=== PATIENT | female | born 1930 | race Caucasian/White ===

== ENCOUNTER 2018-06-22 09:13 | Emergency (ER) | payer MEDICARE ==
[~2018-06-22] VITALS: Ht 160 cm; Wt 90.7 kg
[~2018-06-22 09:13] MED LIST: ACET325 PO; ALEN70 PO; CODACE30 PO; Combigan Eye Dro5 ML; ESOM20 PO; GLAUCOMA DROPS OP; IBUPROFEN PO; LATA.005SO; LISI5 PO; Omeprazole20 M1; PROC5 PO; Simvastatin20 MG PO; [UNRECOGNIZED DRUG - REMARK] PO; [UNRECOGNIZED DRUG - REMARK] PO
[2018-06-22] MEDS ORDERED: ACET325 PO (09:49)
[2018-06-22] MEDS ORDERED: TYLECOD3 PO (09:49)
[2018-06-22] MEDS ORDERED: IBUP600 PO (09:49)
[2018-06-22] MEDS ORDERED: METR250 (09:50)
[2018-06-22] MEDS ORDERED: Flovent Diskus50 MCG (09:51)
[2018-06-22] MEDS ORDERED: Combigan Eye Dro5 ML (09:51)
[2018-06-22] MEDS ORDERED: Xalatan2.5 ML (09:51)
[2018-06-22] MEDS ORDERED: SIMV10 PO (09:51)
[2018-06-22] MEDS ORDERED: Doxycycline Hy100 M3 (09:51)
[2018-06-22] MEDS ORDERED: ZYRTEC10 M1 PO (09:52)
[2018-06-22] MEDS ORDERED: OLME20 PO (09:53)
[2018-06-22] MEDS ORDERED: Omeprazole20 M1 PO (09:53)
[2018-06-22 10:10] LABS: BASOPHILS ABSOLUTE AUTO 0.02 K/mm3 (0.00-0.23); BASOPHILS PERCENT AUTO 0 % (0-2); EOSINOPHILS ABSOLUTE AUTO 0.04 K/mm3 (0.00-0.68); EOSINOPHILS PERCENT AUTO 0 % (0-6); Hematocrit 43.5 % (33.0-51.0); Hemoglobin 14.7 g/dL (11.5-16.0); IMMATURE GRAN ABSOLUTE AUTO 0.03 K/mm3 (0.00-0.10); IMMATURE GRAN PERCENT AUTO 0 % (0-1); LYMPHOCYTES ABSOLUTE AUTO 1.07 K/mm3 (0.84-5.20); LYMPHOCYTES PERCENT AUTO 11 % (21-46); MONOCYTES PERCENT AUTO 6 % (4-13); Mean Corpuscular HGB 30.4 pg (26.0-34.0); Mean Corpuscular HGB Conc 33.8 g/dL (31.5-36.5); Mean Corpuscular Volume 90 fL (80-100); Mean Platelet Volume 9.4 fL (9.1-12.4); NEUTROPHILS ABSOLUTE AUTO 8.18 K/mm3 (1.96-9.15); NEUTROPHILS PERCENT AUTO 82 % (41-73); Platelet Count 145 K/mm3 (150-400); RDW Coefficient Variation 12.5 % (11.7-14.2); RDW Standard Deviation 40.4 fL (35.1-46.3); Red Blood Cell Count 4.84 M/mm3 (3.80-5.20); White Blood Cell Count 9.94 K/mm3 (4.00-11.30)
[2018-06-22 10:35] LABS: Alanine Aminotransfer (ALT/SGP 18 U/L (12-78); Albumin, Blood 3.6 g/dL (3.4-5.0); Albumin/Globulin Ratio 1.1 (0.8-1.8); Alk Phos 89 U/L (50-136); Anion Gap 9 mmol/L (6-16); Aspartate Aminotrans (AST/SGOT 19 U/L (12-37); Bilirubin, Total 0.5 mg/dL (0.1-1.0); Blood Urea Nitrogen 34 mg/dL (8-24); Bun/Creatinine Ratio 48.5 (12.0-20.0); CO2, Blood 24 mmol/L (21-32); Calcium, Blood 9.3 mg/dL (8.5-10.1); Chloride, Blood 108 mmol/L (98-108); Globulin, Blood 3.4 g/dL (2.2-4.0); Glomerular Filtration Rate >60 (60-); Glucose, Blood 138 mg/dL (70-99); Potassium, Blood 3.9 mmol/L (3.5-5.5); Sodium, Blood 141 mmol/L (136-145)
[2018-06-22] MEDS ORDERED: Zofran4 MG PO (11:09)
== END 2018-06-22 11:39 | disposition home or self-care (01) ==
LOC: ER 09:13
PROVIDERS: Emergency Medicine
DX: R11.2 Nausea with vomiting, unspecified (principal); Z88.0 Allergy status to penicillin; Z88.2 Allergy status to sulfonamides; Z88.5 Allergy status to narcotic agent; Z88.1 Allergy status to other antibiotic agents; Z79.899 Other long term (current) drug therapy; I10 Essential (primary) hypertension; K21.9 Gastro-esophageal reflux disease without esophagitis; Z87.891 Personal history of nicotine dependence
CPT/HCPCS: 36415; 80053; 85025; 93005; 93010; 96361; 96374; 99283-25; J2405; J7030

== ENCOUNTER 2018-10-14 09:36 | Inpatient (IN) | payer MEDICARE ==
[~2018-10-14] VITALS: Ht 160 cm; Wt 91.5 kg
[~2018-10-14 09:36] MED LIST changes: +Combigan Eye Dro5 ML BOTHEYES; +Doxycycline Hy100 M3; +Flovent Diskus50 MCG INH; +IBUP800 PO; +METR250; +OLME20 PO; +Omeprazole20 M1 PO; +SIMV10 PO; +TYLECOD3 PO; +Xalatan2.5 ML BOTHEYES; +ZYRTEC10 M1 PO; +Zofran4 MG PO
[2018-10-14 10:06] LABS: BASOPHILS ABSOLUTE AUTO 0.03 K/mm3 (0.00-0.23); BASOPHILS PERCENT AUTO 0 % (0-2); EOSINOPHILS ABSOLUTE AUTO 0.05 K/mm3 (0.00-0.68); EOSINOPHILS PERCENT AUTO 0 % (0-6); Hematocrit 44.6 % (33.0-51.0); Hemoglobin 14.6 g/dL (11.5-16.0); IMMATURE GRAN ABSOLUTE AUTO 0.06 K/mm3 (0.00-0.10); IMMATURE GRAN PERCENT AUTO 1 % (0-1); LYMPHOCYTES PERCENT AUTO 9 % (21-46); MONOCYTES ABSOLUTE AUTO 0.64 K/mm3 (0.16-1.47); MONOCYTES PERCENT AUTO 5 % (4-13); Mean Corpuscular HGB 30.2 pg (26.0-34.0); Mean Corpuscular HGB Conc 32.7 g/dL (31.5-36.5); Mean Corpuscular Volume 92 fL (80-100); Mean Platelet Volume 9.2 fL (9.1-12.4); NEUTROPHILS ABSOLUTE AUTO 9.87 K/mm3 (1.96-9.15); NEUTROPHILS PERCENT AUTO 84 % (41-73); Platelet Count 189 K/mm3 (150-400); RDW Coefficient Variation 13.7 % (11.7-14.2); RDW Standard Deviation 46.5 fL (35.1-46.3); Red Blood Cell Count 4.83 M/mm3 (3.80-5.20); White Blood Cell Count 11.75 K/mm3 (4.00-11.30)
[2018-10-14 10:26] LABS: Alanine Aminotransfer (ALT/SGP 24 U/L (12-78); Albumin, Blood 3.8 g/dL (3.4-5.0); Alk Phos 99 U/L (50-136); Anion Gap 12 mmol/L (6-16); Aspartate Aminotrans (AST/SGOT 24 U/L (12-37); Bilirubin, Total 0.5 mg/dL (0.1-1.0); Blood Urea Nitrogen 18 mg/dL (8-24); Bun/Creatinine Ratio 25.4 (12.0-20.0); CO2, Blood 25 mmol/L (21-32); Calcium, Blood 9.5 mg/dL (8.5-10.1); Chloride, Blood 106 mmol/L (98-108); Creatinine, Blood 0.71 mg/dL (0.40-1.00); Globulin, Blood 3.9 g/dL (2.2-4.0); Glomerular Filtration Rate >60 (60-); Glucose, Blood 163 mg/dL (70-99); Potassium, Blood 3.7 mmol/L (3.5-5.5); Sodium, Blood 143 mmol/L (136-145); Total Protein, Blood 7.7 g/dL (6.4-8.2); Troponin I <0.015 ng/mL (0.000-0.040)
[2018-10-14] MEDS ORDERED: GABA300 PO ×2 (11:00→16:08)
[2018-10-14] MEDS ORDERED: Tizanidine HCl2 MG PO (11:00)
[2018-10-14] MEDS ORDERED: IRBE150 PO (11:00)
[2018-10-14] MEDS ORDERED: Flonase 0.05% N16 GM (16:08)
[2018-10-14] MEDS ORDERED: Zocor20 MG PO (16:08)
[2018-10-14] MEDS ORDERED: SIME80CH PO (16:10)
[2018-10-14] MEDS ORDERED: B-COMPLEX PO (16:13)
--- NOTE | 2018-10-14 19:57 | NUR ---
1715 Received the pt from the ED on a stretcher. Awake, alert, and oriented, pleasantly conversant. She was assisted first to a bedside commode from the stretcher, where she voided, and then was assisted to the bed. Noted NG tube already in place, with dark brown liquid visible inside the tubing. The pt denies any nausea or pain at this time, other than discomfort from the NGtube itself. Vital signs were taken. The pt was assisted to a lying position with the HOB elevated to 30 degrees. She stated that she was more comfortable after being given an extra pillow. Medication list was reviewed with the patient. SHE STATES THAT SHE HAS BEEN TAKING IBUPROFEN, 400 MG, EVERY 4 HOURS THROUGHOUT THE DAY, FOR AN EXTENSIVE PERIOD OF TIME. STATES THAT HER DOCTOR PRESCRIBED IT FOR HER. NGTube was connected to low continuous suction, per written orders, and noted small amounts of dark brown liquid were being evacuated. The pt appears to be resting comfortably.
[2018-10-14] MEDS ORDERED: IRBE75 PO (20:08)
--- NOTE | 2018-10-14 20:44 | NUR ---
UPDATE DR JONES NOTIFIED THAT PATIENT REPORTS TAKING IBUPROFEN Q4H AROUND THE CLOCK LATELY.
[2018-10-15 03:59] LABS: BASOPHILS ABSOLUTE AUTO 0.02 K/mm3 (0.00-0.23); BASOPHILS PERCENT AUTO 0 % (0-2); EOSINOPHILS ABSOLUTE AUTO 0.02 K/mm3 (0.00-0.68); EOSINOPHILS PERCENT AUTO 0 % (0-6); IMMATURE GRAN ABSOLUTE AUTO 0.04 K/mm3 (0.00-0.10); IMMATURE GRAN PERCENT AUTO 0 % (0-1); LYMPHOCYTES ABSOLUTE AUTO 1.58 K/mm3 (0.84-5.20); LYMPHOCYTES PERCENT AUTO 16 % (21-46); MONOCYTES PERCENT AUTO 8 % (4-13); Mean Corpuscular HGB 29.5 pg (26.0-34.0); Mean Corpuscular HGB Conc 31.6 g/dL (31.5-36.5); Mean Corpuscular Volume 93 fL (80-100); Mean Platelet Volume 9.3 fL (9.1-12.4); NEUTROPHILS ABSOLUTE AUTO 7.68 K/mm3 (1.96-9.15); NEUTROPHILS PERCENT AUTO 76 % (41-73); Platelet Count 189 K/mm3 (150-400); RDW Coefficient Variation 14.3 % (11.7-14.2); RDW Standard Deviation 48.6 fL (35.1-46.3); Red Blood Cell Count 4.07 M/mm3 (3.80-5.20); White Blood Cell Count 10.14 K/mm3 (4.00-11.30)
[2018-10-15 04:19] LABS: Alanine Aminotransfer (ALT/SGP 17 U/L (12-78); Albumin, Blood 3.3 g/dL (3.4-5.0); Alk Phos 79 U/L (50-136); Anion Gap 8 mmol/L (6-16); Aspartate Aminotrans (AST/SGOT 11 U/L (12-37); Bilirubin, Total 0.6 mg/dL (0.1-1.0); Blood Urea Nitrogen 20 mg/dL (8-24); Bun/Creatinine Ratio 28.1 (12.0-20.0); CO2, Blood 29 mmol/L (21-32); Calcium, Blood 8.5 mg/dL (8.5-10.1); Chloride, Blood 109 mmol/L (98-108); Creatinine, Blood 0.71 mg/dL (0.40-1.00); Globulin, Blood 3.3 g/dL (2.2-4.0); Glomerular Filtration Rate >60 (60-); Glucose, Blood 116 mg/dL (70-99); Potassium, Blood 3.7 mmol/L (3.5-5.5); Sodium, Blood 146 mmol/L (136-145); Total Protein, Blood 6.6 g/dL (6.4-8.2); Troponin I <0.015 ng/mL (0.000-0.040)
--- NOTE | 2018-10-15 06:41 | NUR ---
SHIFT SUMMARY PATIENT PLEASENT AND COOPERATIVE THROUGHOUT THE NIGHT. PATIENT DENIED ANY NAUSEA THROUGHOUT THE NIGHT. NG TUBE HOOKED TO LOW CONTINUOUS SUCTION PER ORDERS AND IS DRAINING BLACK FLUIDS. PATIENT HAS REMAINED SINUS RHYTHM THROUGHOUT THE NIGHT AND CARDIZEM GTT CONTINUES TO RUN AT 5 MLS/HR PER DR JONSE DUE TO PATIENT BEING NPO. IV FLUIDS RUNNING PER ORDERS. PATIENT REPORTS THAT SHE IS "FEELING BETTER" THAN SHE DID UPON ADMIT. PATIENT APPEARED TO SLEEP WELL THROUGHOUT THE NIGHT. WILL CONTINUE TO MONITOR PATIENT AND REPORT TO ONCOMING RN.
--- NOTE | 2018-10-15 12:17 | NUR ---
pt laying in bed visiting with family. will be cobra transfering to PT[facility], when bed is available. call light in reach.
--- NOTE | 2018-10-15 15:11 | NUR ---
PT IS BEING TRANSFERED TO [facility], [place], [place] HAS BEEN FILLED OUT, PT SIGNED CONSENT TO [place]. PT LEFT VIA GURNEY WITH EMT TRANSPORT TO [facility]. GAVE REPORT TO KEN, BUT SHE STATES THEY CAN'T TAKE A CARDIZEM GTT, SO WILL GET ANOHTER ROOM. AWAITING CALL BACK FROM CHARGE NURSE.
--- NOTE | 2018-10-15 15:50 | NUR ---
GAVE REPORT TO ANTHONY ROY PT WILL BE GOING TO ROOM 440. CALLED [facility] WITH ROOM ASSIGNMENT.
== END 2018-10-15 15:20 | disposition short-term general hospital (02) | DRG 381 ==
LOC: ER 09:36 → ERHOLD 13:31 → PCU 16:35
PROVIDERS: Emergency Medicine; ADMIT Family Medicine
DX: K31.1 Adult hypertrophic pyloric stenosis (principal); I13.0 Hypertensive heart and chronic kidney disease with heart failure and stage 1 through stage 4 chronic kidney disease, or unspecified chronic kidney disease; K21.9 Gastro-esophageal reflux disease without esophagitis; Z87.891 Personal history of nicotine dependence; E87.5 Hyperkalemia; N18.3 Chronic kidney disease, stage 3 (moderate); H40.9 Unspecified glaucoma; I25.10 Atherosclerotic heart disease of native coronary artery without angina pectoris; K57.30 Diverticulosis of large intestine without perforation or abscess without bleeding; M81.0 Age-related osteoporosis without current pathological fracture; E11.22 Type 2 diabetes mellitus with diabetic chronic kidney disease; I12.9 Hypertensive chronic kidney disease with stage 1 through stage 4 chronic kidney disease, or unspecified chronic kidney disease; K44.9 Diaphragmatic hernia without obstruction or gangrene
CPT/HCPCS: 36415; 71046; 74177; 80053; 82272; 82947; 83690; 84484; 85025; 93005; 93010; 96361; 96365-59; 96366; 96375; 96376; 99285-25; C9113; J1170; J1650; J2405; J3010; J3480; J7030; Q9967

== ENCOUNTER 2018-11-06 12:05 | Emergency (ER) | payer MEDICARE ==
[~2018-11-06] VITALS: Ht 162.6 cm; Wt 81.7 kg
[~2018-11-06 12:05] MED LIST changes: +B-COMPLEX PO; +Flonase 0.05% N16 GM; +GABA300 PO; +IRBE150 PO; +IRBE75 PO; +SIME80CH PO; +Tizanidine HCl2 MG PO; +Zocor20 MG PO
[2018-11-06] MEDS ORDERED: IRBE150 PO (13:03)
[2018-11-06] MEDS ORDERED: XARELTO20 MG PO (13:04)
[2018-11-06] MEDS ORDERED: Zocor20 MG PO (13:04)
[2018-11-06] MEDS ORDERED: BUME2 PO (13:04)
[2018-11-06] MEDS ORDERED: TIZANIDINE HCL2 MG PO (13:04)
[2018-11-06] MEDS ORDERED: BRIMONIDINE TART5 M1 BOTHEYES (13:05)
[2018-11-06] MEDS ORDERED: DOCU100 PO (13:05)
[2018-11-06] MEDS ORDERED: OXYC5 PO (13:05)
[2018-11-06] MEDS ORDERED: Metoprolol Succ25 MG PO (13:05)
[2018-11-06] MEDS ORDERED: ONDA4 PO (13:06)
== END 2018-11-06 14:15 | disposition home or self-care (01) ==
LOC: ER 12:05
DX: R51 Headache (principal); Z88.0 Allergy status to penicillin; Z88.2 Allergy status to sulfonamides; Z88.1 Allergy status to other antibiotic agents; Z88.8 Allergy status to other drugs, medicaments and biological substances; Z79.899 Other long term (current) drug therapy; I10 Essential (primary) hypertension; K21.9 Gastro-esophageal reflux disease without esophagitis; Z87.891 Personal history of nicotine dependence
CPT/HCPCS: 99283